=== PATIENT | male | born 1965 | race Caucasian/White ===

== ENCOUNTER 2018-12-23 12:05 | Emergency (ER) | payer MEDICAID ==
[2018-12-23] MEDS ORDERED: Bupivacaine 0.5% 10 ML SDV INJECT ONE ×2 (12:49→13:15)
[2018-12-23] MEDS ORDERED: Ibuprofen 800 MG Tab PO ONE (13:20)
[2018-12-23] MEDS ORDERED: Ibuprofen 800 MG Tab ONE (13:21)
--- NOTE | 2018-12-23 13:57 | EDM.PDOC ---
ED HPI GENERAL MEDICAL PROBLEM - General Chief Complaint: Laceration Stated Complaint: LACERATION ON LEFT INDEX FINGER Time Seen by Provider: 12/23/18 12:30 Source of Information: Reports: Patient History Limitations: Reports: No Limitations - History of Present Illness INITIAL COMMENTS - FREE TEXT/NARRATIVE: 53-year-old male cut his index finger on his left hand with a saw. He has a longitudinal laceration over the dorsal aspect of the finger starting just distal to the PIP joint and extending through his nail. Onset: Sudden Duration: Hour(s): (Within the last hour) Location: Reports: Upper Extremity, Left Associated Symptoms: Reports: No Other Symptoms Left Hand Pain Score (Numeric/FACES): 6 - Related Data Allergies Allergy/AdvReac Type Severity Reaction Status Date / Time No Known Allergies Allergy Verified 12/23/18 12:17 Home Meds: Home Meds Aspirin 81 mg PO DAILY 12/23/18 [History] Metoprolol Succinate 50 mg PO DAILY 12/23/18 [History] Past Medical History Cardiovascular History: Reports: Afib Social & Family History - Tobacco Use Smoking Status *Q: Never Smoker - Caffeine Use Caffeine Use: Reports: Coffee - Recreational Drug Use Recreational Drug Use: No ED ROS GENERAL - Review of Systems Review Of Systems: See Below Constitutional: Denies: Fever, Chills Respiratory: Reports: No Symptoms Cardiovascular: Reports: No Symptoms GI/Abdominal: Reports: No Symptoms : Reports: No Symptoms Neurological: Reports: No Symptoms ED EXAM, SKIN/RASH Exam: See Below Exam Limited By: No Limitations General Appearance: Alert, No Apparent Distress Respiratory/Chest: No Respiratory Distress Extremities: Other (Remainder of exam is limited to the left hand. Patient has a 4.5 cm laceration down the dorsal aspect of the index finger. It is irregular and macerated. Tendons are exposed but not lacerated. The nail matrix and nail bed are both significantly damaged and the nail itself is gone.) Course - Vital Signs Last Recorded V/S: Last Vital Signs Temp 97.3 F 12/23/18 12:18 Pulse 65 12/23/18 12:18 Resp 16 12/23/18 12:18 BP 142/85 H 12/23/18 12:18 Pulse Ox 99 12/23/18 12:18 - Orders/Labs/Meds Meds: Medications Discontinued Medications Generic Name Dose Route Start Last Admin Trade Name Freq PRN Reason Stop Dose Admin Bupivacaine HCl 10 ml 12/23/18 13:15 12/23/18 13:22 Sensorcaine-Mpf 0.5% INJECT 12/23/18 13:16 10 ml ONETIME ONE Administration Ibuprofen 800 mg 12/23/18 13:20 12/23/18 13:22 Motrin PO 12/23/18 13:21 800 mg ONETIME ONE Administration Ibuprofen Confirm 12/23/18 13:21 Motrin Administered 12/23/18 13:22 Dose [address] [facility] - Re-Assessments/Exams Free Text/Narrative Re-Assessment/Exam: 12/23/18 15:00 A 0.5% Marcaine block was done to the finger. Laceration was closed with 5 4-0 Ethilon sutures, and a small section of the nail distally was removed. Topical bacitracin and bandages were applied, along with a tube gauze and would like the patient to recheck tomorrow. He was placed on cephalexin 500 mg 3 times a day and given 20 hydrocodone for any extra pain control. Departure - Departure Time of Disposition: 14:07 Disposition: Home, Self-Care 01 Clinical Impression: Finger laceration with complication Qualifiers: Encounter type: initial encounter Qualified Code(s): S61.219A - Laceration without foreign body of unspecified finger without damage to nail, initial encounter - Discharge Information Instructions: Laceration Care, Adult Referrals: PCP,None [Primary Care Provider] - Forms: ED Department Discharge Care Plan Goals: Keep wound covered and clean while healing, and recheck tomorrow for a dressing change. Take the antibiotic 3 times a day as directed and use ibuprofen or naproxen for pain. Add stronger pain medication if needed.
== END 2018-12-23 14:07 | disposition home or self-care (01) ==
LOC: JP.ED 12:05
DX: S61.311A Laceration without foreign body of left index finger with damage to nail, initial encounter (principal); I48.91 Unspecified atrial fibrillation; W27.0XXA Contact with workbench tool, initial encounter; Z79.82 Long term (current) use of aspirin; Z79.899 Other long term (current) drug therapy
CPT/HCPCS: 12002; 99282; A9270-GY; J3490